=== PATIENT | female | born 1955 | race Caucasian/White ===

== ENCOUNTER 2018-07-04 05:39 | Emergency (ER) | payer MEDICAID, OTHER ==
[~2018-07-04] VITALS: Ht 160 cm; Wt 93.2 kg
[~2018-07-04 05:39] MED LIST: NO HOME MEDS
[2018-07-04 05:44] VITALS: BP 176/93
[2018-07-04] MEDS ORDERED: ketorolac trometh inj. 60 MG/2 ML VIAL IM ONE (06:15)
[2018-07-04] MEDS ORDERED: ACET-3067 PO (06:17)
[2018-07-04] MEDS ORDERED: CYCL-1 PO (06:17)
== END 2018-07-04 06:25 | disposition home or self-care (01) ==
LOC: ER 05:41
DX: M54.5 Low back pain (principal); M54.2 Cervicalgia; M62.830 Muscle spasm of back; M25.519 Pain in unspecified shoulder; M54.6 Pain in thoracic spine; Z79.899 Other long term (current) drug therapy; Z79.1 Long term (current) use of non-steroidal anti-inflammatories (NSAID); X50.1XXA Overexertion from prolonged static or awkward postures, initial encounter; Y93.89 Activity, other specified; Y92.89 Other specified places as the place of occurrence of the external cause; Y99.0 Civilian activity done for income or pay
CPT/HCPCS: 96372; 99283; J1885

== ENCOUNTER 2022-06-10 13:50 | Emergency (ER) | payer BC, MEDICARE ==
[~2022-06-10] VITALS: Ht 160 cm; Wt 90.0 kg
[~2022-06-10 13:50] MED LIST changes: +CYCL-1 PO
[2022-06-10] MEDS ORDERED: LORazepam 0.5 MG tablet PO STA (14:45)
[2022-06-10] MEDS ORDERED: cloNIDine 0.1 mg tablet PO ONE (14:45)
--- NOTE | 2022-06-10 15:05 | NUR ---
Pt to CT
[2022-06-10 15:23] LABS: BASOPHILS # (AUTO) 0.1 X10'3 (0-0.2); BASOPHILS % (AUTO) 1.1 % (0-1); EOSINOPHILS # (AUTO) 0.1 X10'3 (0-0.9); EOSINOPHILS % (AUTO) 1.2 % (0-6); HEMATOCRIT 45.2 % (35.0-45.0); HEMOGLOBIN 15.6 g/dl (12.0-16.0); LYMPHOCYTES # (AUTO) 1.5 X10'3 (1.1-4.8); LYMPHOCYTES % (AUTO) 16.2 % (21-51); MEAN CORPUSCULAR HEMOGLOBIN 31.4 PG (27.0-31.0); MEAN CORPUSCULAR HGB CONC 34.5 g/dL (33.0-36.5); MEAN CORPUSCULAR VOLUME 90.8 FL (78-98); MEAN PLATELET VOLUME 9.1 FL (7.4-10.4); MONOCYTES # (AUTO) 0.4 X10'3 (0-0.9); MONOCYTES % (AUTO) 4.5 % (2-12); NEUTROPHILS # (AUTO) 7.3 X10'3 (1.8-7.7); PLATELET COUNT 232 X10'3 (140-440); RED BLOOD COUNT 4.97 X10'6 (4.20-5.60); RED CELL DISTRIBUTION WIDTH 12.9 % (11.5-14.5); WHITE BLOOD COUNT 9.4 X10'3 (4.5-11.0)
[2022-06-10 15:36] LABS: ALANINE AMINOTRANSFERASE 24 U/L (12-78); ALBUMIN/GLOBULIN RATIO 1.1 (1.1-1.5); ALKALINE PHOSPHATASE 107 IU/L (46-116); ANION GAP 7 (8-16); ASPARTATE AMINO TRANSFERASE 22 U/L (10-37); BILIRUBIN,TOTAL 0.8 MG/DL (0.1-1.0); BLOOD UREA NITROGEN 12 MG/DL (7-18); CALCIUM 9.3 MG/DL (8.5-10.1); CHLORIDE 107 MMOL/L (99-107); CREATININE 0.63 MG/DL (0.40-0.90); GLUCOSE 111 MG/DL (70-104); POTASSIUM 4.4 MMOL/L (3.5-5.1); SODIUM 141 MMOL/L (135-145); TOTAL PROTEIN 7.6 G/DL (6.4-8.2); eGFR > 90 ML/MIN
[2022-06-10 15:46] LABS: MAGNESIUM 2.1 MG/DL (1.5-2.4)
[2022-06-10 17:06] VITALS: BP 134/82
--- NOTE | 2022-06-10 17:10 | NUR ---
PT STATED THAT SHE CAN NOT URINATE AT THIS TIME FOR URINE SAMPLE. RN NOTIFIED DR ERNANDEZ.
== END 2022-06-10 17:42 | disposition home or self-care (01) ==
LOC: ER 13:51
DX: I16.0 Hypertensive urgency (principal); I10 Essential (primary) hypertension; R41.0 Disorientation, unspecified; E78.00 Pure hypercholesterolemia, unspecified
CPT/HCPCS: 36415; 70450; 71045; 80053; 83735; 83880; 84484; 85025; 93005; 99285

== ENCOUNTER 2022-06-12 15:35 | Emergency (ER) | payer MEDICARE ==
[~2022-06-12] VITALS: Ht 160 cm; Wt 90.9 kg
[2022-06-12 16:30] VITALS: BP 166/95
== END 2022-06-12 16:56 | disposition home or self-care (01) ==
LOC: ER 15:36
DX: I10 Essential (primary) hypertension (principal); E78.00 Pure hypercholesterolemia, unspecified
CPT/HCPCS: 93005; 99283